=== PATIENT | female | born 1965 | race Hispanic/Latino ===

== ENCOUNTER → 2024-01-08 06:46 | Outpatient (REF) | payer OTHER, SELFPAY ==
[2024-01-08 07:32] LABS: Hematocrit 36.4 % (37.0-47.0); Hemoglobin 12.2 g/dL (12.0-16.0); Mean Corp Hgb Conc. 33.5 g/dL (33.0-37.0); Mean Corpuscular Hgb 30.3 pg (27.0-31.0); Mean Corpuscular Volume 90.3 fL (81.0-99.0); Mean Platelet Volume 9.6 fL (7.4-10.4); Platelet Count 269 10^3/uL (130-400); Red Blood Cell Count 4.03 10^6/uL (4.20-5.40); White Blood Cell Count 7.9 10^3/uL (4.8-10.8)
[2024-01-08 07:57] LABS: ALT (SGPT) 50 U/L (0-35); AST (SGOT) 37 U/L (14-36); Albumin 3.6 g/dl (3.5-5.0); Alkaline Phosphatase 108 U/L (38-126); Blood Urea Nitrogen 15 mg/dl (7-17); Calcium 8.9 mg/dl (8.4-10.2); Carbon Dioxide 23 mmol/L (22-30); Chloride 107 mmol/L (98-107); Glucose 102 mg/dl (70-99); HDL Cholesterol 52 mg/dl; LDL Cholesterol, Calculated 97 mg/dl; Potassium 3.8 mmol/L (3.5-5.1); Sodium 140 mmol/L (135-145); Total Bilirubin 0.6 mg/dl (0.2-1.3); Total Cholesterol 194 mg/dl (50-199); Total Protein 6.5 g/dl (6.3-8.2); Triglyceride 227 mg/dl (10-149); Very Low Density Lipoprotein 45 mg/dl (0-30); eGFR > 60.00
[2024-01-08 08:12] LABS: Vitamin D, 25-OH*** 41.7 ng/mL (30-80)
[2024-01-08 08:17] LABS: Free T4 1.37 ng/dl (0.78-2.19)
[2024-01-08 08:25] LABS: TSH < 0.02 uIU/ml (0.47-4.68)
[2024-01-08 09:34] LABS: Glycohemoglobin (HgbA1c) 5.8 % (4.0-5.6)
[2024-01-09 22:00] LABS: Thyroid Peroxidase Ab (TPO) 0.3 IU/mL (0.0-9.0)
== END ==
LOC: CLINIC 06:46
PROVIDERS: ATTENDING PHYSICIAN Nurse Practitioner Adult Health
DX: Z00.00 Encounter for general adult medical examination without abnormal findings (principal); E03.9 Hypothyroidism, unspecified
CPT/HCPCS: 36415; 80053; 80061; 82306; 83036; 84439; 84443; 85027; 86376

== ENCOUNTER → 2025-06-04 07:21 | Outpatient (REF) | payer OTHER, SELFPAY ==
[2025-06-04 08:59] LABS: ALT (SGPT) 26 U/L (0-35); AST (SGOT) 27 U/L (14-36); Albumin 4.1 g/dl (3.5-5.0); Alkaline Phosphatase 107 U/L (38-126); Blood Urea Nitrogen 17 mg/dl (7-17); Calcium 8.9 mg/dl (8.4-10.2); Carbon Dioxide 28 mmol/L (22-30); Chloride 107 mmol/L (98-107); Glucose 99 mg/dl (70-99); Potassium 4.1 mmol/L (3.5-5.1); Sodium 140 mmol/L (135-145); Total Protein 6.6 g/dl (6.3-8.2); eGFR > 60.00
[2025-06-04 09:06] LABS: Glycohemoglobin (HgbA1c) 5.4 % (4.0-5.6)
[2025-06-04 09:22] LABS: Vitamin D, 25-OH*** 58.0 ng/mL (30-80)
[2025-06-04 09:29] LABS: TSH < 0.02 uIU/ml (0.47-4.68)
== END ==
LOC: REG 07:21
PROVIDERS: ATTENDING PHYSICIAN Nurse Practitioner Adult Health
DX: I10 Essential (primary) hypertension (principal); R74.8 Abnormal levels of other serum enzymes; E03.9 Hypothyroidism, unspecified; E55.9 Vitamin D deficiency, unspecified; R73.03 Prediabetes
CPT/HCPCS: 36415; 80053; 82306; 83036; 84439; 84443

== ENCOUNTER → 2025-08-24 10:21 | Outpatient (REF) | payer OTHER, SELFPAY ==
[2025-08-24 12:18] LABS: HDL Cholesterol 66 mg/dl; LDL Cholesterol, Calculated 118 mg/dl; Very Low Density Lipoprotein 29 mg/dl (0-30)
[2025-08-24 12:50] LABS: TSH < 0.02 uIU/ml (0.47-4.68)
== END ==
LOC: CLINIC 10:21
PROVIDERS: ATTENDING PHYSICIAN Nurse Practitioner Adult Health
DX: E03.9 Hypothyroidism, unspecified (principal); I10 Essential (primary) hypertension; E78.1 Pure hyperglyceridemia
CPT/HCPCS: 36415; 80061; 84439; 84443